=== PATIENT | female | born 1995 | race African-American/Black ===

== ENCOUNTER 2023-03-01 09:58 | Emergency (ER) | payer MEDICAID ==
[~2023-03-01] VITALS: Ht 162.6 cm; Wt 56.7 kg
[2023-03-01 10:03] VITALS: O2SAT 100
[2023-03-01 11:51] LABS: HEMOGLOBIN. 13.1 g/dL (12.0-16.0); MEAN CORPUSCULAR HEMOGLOBIN 28.4 pg (28.0-32.0); MEAN CORPUSCULAR HGB CONC 31.9 g/dL (31.0-37.0); MEAN PLATELET VOLUME 9.1 fl (7.4-10.4); PLATELET 295 x1000/uL (130-400); RED CELL DISTRIBUTION WIDTH 12.6 % (11.6-14.6); WHITE BLOOD COUNT 8.8 x1000/uL (4.5-11.0)
[2023-03-01 12:06] LABS: DIFFERENTIAL COMMENT 1
[2023-03-01 12:07] LABS: ALANINE AMINOTRANSFERASE 62 IU/L (10-49); ASPARTATE AMINOTRANSFERASE 57 IU/L (<34); BILIRUBIN TOTAL 1.9 mg/dL (0.1-1.0); CALCIUM 9.9 mg/dL (8.7-10.4); CARBON DIOXIDE 21 mEq/L (21-32); CHLORIDE 108 mEq/L (98-107); CREATININE 0.8 mg/dL (0.6-1.0); GLUCOSE 141 mg/dL (70-105); PROTEIN TOTAL 8.5 g/dL (6.0-8.3); SODIUM 141 mEq/L (136-145); UREA NITROGEN BLOOD 17 mg/dL (9-23)
[2023-03-01 12:24] LABS: PLATELET ESTIMATE NORMAL
[2023-03-01] MEDS ORDERED: ONDANSETRON HCL 4MG/2ML INJ IV STA (12:50)
[2023-03-01] MEDS ORDERED: SODIUM CHLORIDE 0.9% 1,000 ML IV ONE (13:00)
[2023-03-01 13:23] LABS: HCG SCREEN NEGATIVE
[2023-03-01 14:00] VITALS: BP 114/80; PULSE 65; RESP 16; TEMP 98.4
[2023-03-01] MEDS ORDERED: ONDA4TAB11 PO (14:02)
== END 2023-03-01 14:24 | disposition home or self-care (01) ==
LOC: ER 09:58
DX: E86.0 Dehydration (principal)
CPT/HCPCS: 80053; 84703; 83690; 85025; 36415; 96361; 96374; 99283; J2405; J7030; Z7610